=== PATIENT | male | born 1995 | race Caucasian/White ===

== ENCOUNTER 2018-06-12 18:50 | Emergency (ER) | payer OTHER ==
[2018-06-12 19:00] VITALS: BP 119/68; PULSE 82; TEMP 98.2; BMI 30.8
--- NOTE | 2018-06-12 19:19 | PDOC ---
History of Present Illness - General History Source: Patient Exam Limitations: No Limitations <Sheldon Nogueira - Last Filed: 06/12/18 19:15> - History of Present Illness Initial Comments: This patient is a 22 year old male with a PMHx of ADHD, who presents to the ER for RX refill. Patient states that he recently graduated from [employer] and is now attending [employer]. He was given his last prescription for 40 mg XR by the doctor at [employer] facility but unfortunately lost the prescription after washing his jeans.He states that was the last time he took his Adderall. He complains of difficulty sleeping over the past week which he attributes to not taking his medication. He states that he does not currently have a doctor and is in the process of looking for one. In the mean time, he was told to come to the ER for a prescription refill. <Savannah Cohen - Last Filed: 06/12/18 19:34> - General Chief Complaint: RX Refill Stated Complaint: ADDERALL RX Time Seen by Provider: 06/12/18 19:05 Past History - Past Medical History COPD: No Psychiatric Problems: Yes - Immunization History Immunization Up to Date: Yes - Suicide/Smoking/Psychosocial Hx Smoking History: Current every day smoker Have you smoked in the past 12 months: Yes Number of Cigarettes Smoked Daily: 4 Information on smoking cessation initiated: Yes 'Breaking Loose' booklet given: 06/12/18 Hx Alcohol Use: No (DENIES) Drug/Substance Use Hx: Yes Substance Use Type: Marijuana <Sheldon Nogueira - Last Filed: 06/12/18 19:15> <Savannah Cohen - Last Filed: 06/12/18 19:34> - Past Medical History Allergies/Adverse Reactions: Allergies Allergy/AdvReac Type Severity Reaction Status Date / Time No Known Allergies Allergy Verified 06/12/18 18:52 Home Medications: Ambulatory Orders Dextroamphetamine/Amphetamine [Adderall 10 mg Tablet] 40 mg PO DAILY 05/06/16 Dextroamphetamine/Amphetamine [Adderall Xr 20 mg Capsule] 40 mg PO DAILY #6 cap.er.24h MDD 2 06/12/18 Review of Systems - Review of Systems Comments:: GENERAL/CONSTITUTIONAL: No fever or chills. No weakness. HEAD, EYES, EARS, NOSE AND THROAT: No change in vision. No ear pain or discharge. No sore throat. CARDIOVASCULAR: No chest pain or shortness of breath. RESPIRATORY: No cough, wheezing, or hemoptysis. GASTROINTESTINAL: No nausea, vomiting, diarrhea or constipation. GENITOURINARY: No dysuria, frequency, or change in urination. MUSCULOSKELETAL: No joint or muscle swelling or pain. No neck or back pain. SKIN: No rash NEUROLOGIC: No headache, vertigo, loss of consciousness, or change in strength/ sensation. ENDOCRINE: Trouble sleeping. No increased thirst. No abnormal weight change. HEMATOLOGIC/LYMPHATIC: No anemia, easy bleeding, or history of blood clots. ALLERGIC/IMMUNOLOGIC: No hives or skin allergy. <Savannah Cohen - Last Filed: 06/12/18 19:34> *Physical Exam - Vital Signs Last Vital Signs Temp Pulse Resp BP Pulse Ox 98.2 F 82 18 119/68 99 06/12/18 18:52 06/12/18 18:52 06/12/18 18:52 06/12/18 18:52 06/12/18 18:52 <Sheldon Nogueira - Last Filed: 06/12/18 19:15> - Vital Signs Last Vital Signs Temp Pulse Resp BP Pulse Ox 98.2 F 82 18 119/68 99 06/12/18 18:52 06/12/18 18:52 06/12/18 18:52 06/12/18 18:52 06/12/18 18:52 - Physical Exam Comments: GENERAL: Awake, alert, and fully oriented, in no acute distress HEAD: No signs of trauma EYES: PERRLA, EOMI, sclera anicteric, conjunctiva clear ENT: Hearing grossly normal, nares patent. Moist mucosa ABDOMEN: Soft, nontender, normoactive bowel sounds. No guarding, no rebound. No masses EXTREMITIES: Normal range of motion, no edema. No clubbing or cyanosis. No cords, erythema, or tenderness NEUROLOGICAL: Cranial nerves II through XII grossly intact. Normal speech, normal gait SKIN: Warm, Dry, normal turgor, no rashes or lesions noted. <Savannah Cohen - Last Filed: 06/12/18 19:34> Medical Decision Making - Medical Decision Making 06/12/18 19:15 A portion of this note was documented by scribe services under my direction. I have reviewed the details of the note, within reason, and agree with the documentation with the following case summary and management plan written by me. Patient treated in the ED. Nursing notes are reviewed and incorporated into the medical decision-making. Vital signs reviewed. Vital Signs Temp Pulse Resp BP Pulse Ox 98.2 F 82 18 119/68 99 06/12/18 18:52 10 18:52 10 18:52 06/12/18 18:52 06/12/18 18:52 22-year-old male with history of ADHD presents with medication refill. The patient is currently a student at [employer]. States that he was recently a resident of [facility]. He had a prescription that was filled by their doctors but since his release, the patient has not found another psychiatrist or therapist. He has no acute complaints at the moment other than difficulty concentrating. Patient states he is looking for another physician for follow- up. I had advised the patient that we can give him a three-day prescription for his 40 mg of Adderall extended release daily. I advised the patient that she would be better served in an outpatient management for medications as emergency room is not optimal for medication refilling for his ADHD medications. Patient verbalizes and understand agrees with plan. He requests follow-up with our system. I discussed the physical exam findings, ancillary test results and final diagnoses with the patient. I answered all of the patient's questions. The patient was satisfied with the care received and felt comfortable with the discharge plan and treatment plan. The patient will call their primary care physician within 24 hours to arrange follow-up and will return to the Emergency Department with any new, persistant or worsening symptoms. <Sheldon Nogueira - Last Filed: 06/12/18 19:15> *DC/Admit/Observation/Transfer - Discharge Dispostion Decision to Admit order: No <Sheldon Nogueira - Last Filed: 06/12/18 19:15> - Attestations Scribe Attestion: 06/12/18 19:31 Documentation prepared by Savannah Cohen, acting as medical instrument technician for Sheldon Nogueira MD. <Savannah Cohen - Last Filed: 06/12/18 19:34> Diagnosis at time of Disposition: Medication refill - Discharge Dispostion Disposition: HOME Condition at time of disposition: Good - Prescriptions Prescriptions: Dextroamphetamine/Amphetamine [Adderall Xr 20 mg Capsule] 40 mg PO DAILY #6 cap.er.24h MDD 2 - Referrals Referrals: Garo Blackwell MD [Staff Physician] - - Patient Instructions Printed Discharge Instructions: Attention Deficit Hyperactivity Disorder and Attention Deficit Disorder Additional Instructions: Please take your medications. It is very important that you follow up with a regular doctor for refills.
== END 2018-06-12 19:22 | disposition home or self-care (01) ==
LOC: FER 18:50
DX: Z76.0 Encounter for issue of repeat prescription (principal); F90.9 Attention-deficit hyperactivity disorder, unspecified type; F17.210 Nicotine dependence, cigarettes, uncomplicated
CPT/HCPCS: 99281-25